=== PATIENT | female | born 1965 | race American Indian/Alaskan Native ===

== ENCOUNTER 2017-11-27 11:46 | Emergency (ER) | payer OTHER ==
[2017-11-27 11:47] VITALS: BMI 68.1
[2017-11-27 12:20] VITALS: BP 167/90; PULSE 83; RESP 18; TEMP 98.5; O2SAT 98
[2017-11-27] MEDS ORDERED: Sodium Chloride 0.9% 500 ML IV STA (12:22)
--- NOTE | 2017-11-27 12:36 | ED PDOC ---
Arrival/HPI - General Chief Complaint: Female Genitourinary Time Seen by Provider: 11/27/17 12:21 - History of Present Illness Narrative History of Present Illness (Text): 11/27/17 12:31 Patient is a 52 y/o F presenting with 2 week history of increasing frequency and suprapubic pain. She reports that she thought the symptoms were from a uti so she increased her fluids and drank cranberry juice with no improvement of symptoms. Reports b/l suprapubic pain and b/l flank pain. Denies dysuria. Denies fever, cough, uri symptoms, chest pain, shortness of breath, nausea/ vomiting, diarrhea, constipation, or vaginal bleeding. 11/27/17 12:53 Past Medical History - Psychiatric Hx Substance Use: No - Surgical History Hx Section: Yes Family/Social History Family/Social History: No Known Family HX Smoking Status: Never Smoked Hx Alcohol Use: No Hx Substance Use: No Allergies/Home Meds Allergies/Adverse Reactions: Allergies No Known Allergies Allergy (Verified 11/27/17 12:12) Home Medications: Home Meds Medication Instructions Recorded Confirmed No Known Home Med 11/27/17 11/27/17 Review of Systems - Review of Systems Constitutional: absent: Fatigue, Weight Change, Fevers Respiratory: absent: SOB, Cough, Sputum, Wheezing Cardiovascular: absent: Chest Pain, Palpitations, Edema, Calf Pain Gastrointestinal: Abdominal Pain. absent: Constipation, Diarrhea, Nausea, Vomiting Genitourinary Female: Frequency, Urine Output Changes. absent: Dysuria, Hematuria, Vaginal Bleeding, Vaginal Discharge Neurological: absent: Headache Psychiatric: absent: Anxiety, Depression Physical Exam Vital Signs Temp Pulse Resp BP Pulse Ox 11/27/17 12:13 98.5 F 83 18 167/90 H 98 Temperature: Afebrile Blood Pressure: Hypertensive Pulse: Regular Respiratory Rate: Normal Appearance: Positive for: Well-Appearing, Non-Toxic, Comfortable Pain Distress: None Mental Status: Positive for: Alert and Oriented X 3 - Systems Exam Head: Present: Atraumatic, Normocephalic Pupils: Present: PERRL Extroacular Muscles: Present: EOMI Conjunctiva: Present: Normal Mouth: Present: Moist Mucous Membranes Neck: Present: Normal Range of Motion Respiratory/Chest: Present: Clear to Auscultation, Good Air Exchange. No: Respiratory Distress, Accessory Muscle Use Cardiovascular: Present: Regular Rate and Rhythm, Normal S1, S2. No: Murmurs Abdomen: No: Tenderness, Distention, Rebound, Guarding Upper Extremity: Present: Normal Inspection Lower Extremity: Present: Normal Inspection Medical Decision Making ED Course and Treatment: 11/27/17 13:48 UA negative for infection. +hematuria. Denies dysuria. Labs show microcytic anemia to 8.6. Chem WNL FINDINGS: LOWER THORAX: Unremarkable. LIVER: Unremarkable. No gross lesion or ductal dilatation. GALLBLADDER AND BILE DUCTS: Unremarkable. PANCREAS: Unremarkable. No gross lesion or ductal dilatation. SPLEEN: Unremarkable. ADRENALS: Unremarkable. No mass. KIDNEYS AND URETERS: Unremarkable. No hydronephrosis. No solid mass. VASCULATURE: Unremarkable. No aortic aneurysm. BOWEL: Unremarkable. No obstruction. No gross mural thickening. APPENDIX: Unremarkable. Normal appendix. PERITONEUM: Unremarkable. No free fluid. No free air. LYMPH NODES: Unremarkable. No enlarged lymph nodes. BLADDER: Unremarkable. REPRODUCTIVE: There is a large fibroid uterus. There is a pedunculated fibroid extending to the right measuring 4.2 x 5.2 cm. BONES: No acute fracture. OTHER FINDINGS: None. IMPRESSION: Fibroid uterus. No acute intra-abdominal findings 11/27/17 13:48 11/27/17 13:53 Patient reports hx of iron and b12 deficiency anemia. Instructed to increase iron rich foods and follow-up with PMD. Aware of hematuria (reports menses due tomorrow) and instructed to follow-up with urologist. Made aware of finding of fibroid and instructed that symptoms of abdominal pain and frequency urination are probably from pressure of fibroid on bladder. Instructed to follow-up with OB for further evaluation. 11/27/17 13:58 - Lab Interpretations Lab Results: 11/27/17 13:20 11/27/17 13:20 Lab Results 11/27/17 13:20: Sodium 139, Potassium 3.6, Chloride 105, Carbon Dioxide 23, Anion Gap 15, BUN 8, Creatinine 0.8, Est GFR ( Amer) > 60, Est GFR (Non- Af Amer) > 60, Random Glucose 98, Calcium 9.2, Total Bilirubin 0.5, AST 25, ALT 27, Alkaline Phosphatase 58, Total Protein 7.7, Albumin 4.2, Globulin 3.5, Albumin/Globulin Ratio 1.2 11/27/17 13:20: WBC 5.5, RBC 5.20, Hgb 8.6 L, Hct 28.2 L, MCV 54.2 L, MCH 16.5 L , MCHC 30.5 L, RDW 19.5 H, Plt Count 373, Gran % 63.3, Lymph % (Auto) 25.2, Ocean % (Auto) 8.6 H, Eos % (Auto) 2.4, Baso % (Auto) 0.5, Gran # 3.46, Lymph # ( Auto) 1.4, Ocean # (Auto) 0.5, Eos # (Auto) 0.1, Baso # (Auto) 0.03 11/27/17 12:32: Urine Color Yellow, Urine Appearance Clear, Urine pH 6.0, Ur Specific [place] 1.010, Urine Protein Negative, Urine Glucose (UA) Negative, Urine Ketones Negative, Urine Blood Trace-intact H, Urine Nitrate Negative, Urine Bilirubin Negative, Urine Urobilinogen 0.2, Ur Leukocyte Esterase Negative , Urine RBC 1 - 3, Urine WBC 2 - 5, Ur Epithelial Cells 10 - 12, Urine Bacteria Few - RAD Interpretation Radiology Orders: 11/27/17 12:52 ABD & PELVIS W/O PO OR IV CONT [CT] Stat - Medication Orders Current Medication Orders: Discontinued Medications Sodium Chloride (Sodium Chloride 0.9%) 500 mls @ 999 mls/hr IV .Q31M STA Stop: 11/27/17 12:52 Last Admin: 11/27/17 13:08 Dose: 999 mls/hr eMAR Start Stop Document 11/27/17 13:08 FRANCO (Rec: 11/27/17 13:08 [email or web address]) Intravenous Solution Start Date 11/27/17 Start Time 13:08 Ketorolac Tromethamine (Toradol) 30 mg IVP STAT STA Stop: 11/27/17 12:23 Last Admin: 11/27/17 13:07 Dose: 30 mg MAR Pain Assessment Document 11/27/17 13:07 [facility] (Rec: 11/27/17 13:07 [email or web address] Pain Reassessment Is this a pain reassessment? Yes Presence of Pain Presence of Pain Yes Pain Scale Used Pain Scale Used Numeric Location Left, Right or Bilateral Bilateral Upper or Lower Lower Pain Location Body Site Back Description Description Pressure Intensity of Pain at present 4 IVP Administration Document 11/27/17 13:07 FRANCO (Rec: 11/27/17 13:07 [email or web address] Charges for Administration # of IVP Administrations 1 Phenazopyridine HCl (Pyridium) 100 mg PO STAT STA Stop: 11/27/17 12:22 Last Admin: 11/27/17 13:07 Dose: 100 mg Disposition/Present on Arrival - Present on Arrival Any Indicators Present on Arrival: No History of DVT/PE: No History of Uncontrolled Diabetes: No Urinary Catheter: No History of Decub. Ulcer: No History Surgical Site Infection Following: None - Disposition Have Diagnosis and Disposition been Completed?: Yes Diagnosis: Hematuria, Microcytic anemia, Fibroid uterus Disposition: HOME/ ROUTINE Disposition Time: 13:56 Patient Plan: Discharge Condition: GOOD Discharge Instructions (ExitCare): Uterine Fibroids (ED), Acute Hematuria (ED) , Anemia (ED) Additional Instructions: Follow-up with PMD or [facility] within 2 days. Return to ED if condition worsens. Follow-up with tea bag packer for fibroids. Follow-up with urology for further evaluation of hematuria. Return to ED if condition worsens. Referrals: [employer] Janet Redaphney, [Primary Care Provider] - Follow up with primary Autumn Arshad MD [Staff Provider] - Follow up with primary Edenilson Saavedra MD [Staff Provider] - Follow up with primary [facility] [Outside] - Follow up with primary Oscar Conrad MD [Staff Provider] - Follow up with primary Forms: [employer] (B[place]raini)
[2017-11-27 12:44] LABS: URINE BILIRUBIN NEGATIVE (NEGATIVE); URINE BLOOD TRACE-INTACT (NEGATIVE); URINE GLUCOSE (UA) NEGATIVE (NEGATIVE); URINE LEUKOCYTE ESTERASE NEGATIVE Leu/uL (NEGATIVE); URINE NITRATE NEGATIVE (NEGATIVE); URINE PROTEIN NEGATIVE mg/dL (<30 mg/dL); URINE UROBILINOGEN 0.2 E.U./dL (<1 E.U./dL)
[2017-11-27 12:51] LABS: URINE APPEARANCE CLEAR (CLEAR); URINE COLOR YELLOW (YELLOW)
[2017-11-27 13:20] LABS: URINE BACTERIA FEW (NEG)
[2017-11-27 13:29] LABS: BASO # 0.03 K/mm3 (0.0-2.0); BASO % 0.5 % (0.0-3.0); EOS # 0.1 (0.0-0.7); EOS % 2.4 % (1.5-5.0); GRAN # 3.46 (1.4-6.5); GRAN % 63.3 % (50.0-68.0); HEMOGLOBIN 8.6 g/dL (12.0-16.0); LYMPH # 1.4 (1.2-3.4); LYMPH % 25.2 % (22.0-35.0); MEAN CELL VOLUME 54.2 fl (80.0-105.0); MEAN CORPUSCULAR HEMOGLOBIN 16.5 pg (25.0-35.0); MEAN CORPUSCULAR HGB CONC 30.5 g/dl (31.0-37.0); MONO # 0.5 (0.1-0.6); MONO % 8.6 % (1.0-6.0); PLATELET COUNT 373 10^3/uL (120.0-450.0); RED CELL DISTRIBUTION WIDTH 19.5 % (11.5-14.5); WHITE BLOOD COUNT 5.5 10^3/ul (4.5-11.0)
[2017-11-27 13:42] LABS: ALB/GLOB RATIO 1.2 (1.1-1.8); ALBUMIN 4.2 g/dL (3.0-4.8); ALT/SGPT 27 U/L (7-56); AST/SGOT 25 U/L (14-36); BLOOD UREA NITROGEN 8 mg/dL (7-21); CALCIUM 9.2 mg/dL (8.4-10.5); GFR AFRICAN-AMERICAN > 60; GFR NON-AFRICAN AMERICAN > 60
--- NOTE | 2017-11-27 13:43 | CT ---
PROCEDURE: CT Abdomen and Pelvis without intravenous contrast HISTORY: hematuria, suprapubic pain COMPARISON: None. TECHNIQUE: Without. Contrast Dose: Radiation dose: Total exam DLP = 381 mGy-cm. This CT exam was performed using one or more of the following dose reduction techniques: Automated exposure control, adjustment of the mA and/or kV according to patient size, and/or use of iterative reconstruction technique. FINDINGS: LOWER THORAX: Unremarkable. LIVER: Unremarkable. No gross lesion or ductal dilatation. GALLBLADDER AND BILE DUCTS: Unremarkable. PANCREAS: Unremarkable. No gross lesion or ductal dilatation. SPLEEN: Unremarkable. ADRENALS: Unremarkable. No mass. KIDNEYS AND URETERS: Unremarkable. No hydronephrosis. No solid mass. VASCULATURE: Unremarkable. No aortic aneurysm. BOWEL: Unremarkable. No obstruction. No gross mural thickening. APPENDIX: Unremarkable. Normal appendix. PERITONEUM: Unremarkable. No free fluid. No free air. LYMPH NODES: Unremarkable. No enlarged lymph nodes. BLADDER: Unremarkable. REPRODUCTIVE: There is a large fibroid uterus. There is a pedunculated fibroid extending to the right measuring 4.2 x 5.2 cm. BONES: No acute fracture. OTHER FINDINGS: None. IMPRESSION: Fibroid uterus. No acute intra-abdominal findings
== END 2017-11-27 14:05 | disposition home or self-care (01) ==
LOC: ED 11:46
DX: D50.9 Iron deficiency anemia, unspecified (principal); R31.9 Hematuria, unspecified; D25.9 Leiomyoma of uterus, unspecified
CPT/HCPCS: 74176; 80053; 81001; 85025; 87086; 96374; 99284; J1885; J7040

== ENCOUNTER 2018-05-27 12:34 | Emergency (ER) | payer OTHER ==
[2018-05-27 12:44] VITALS: BMI 26.5
[2018-05-27 12:45] VITALS: TEMP 98.3; O2SAT 100
--- NOTE | 2018-05-27 12:51 | ED PDOC ---
Arrival/HPI - General Chief Complaint: Shortness Of Breath Time Seen by Provider: 05/27/18 12:41 Historian: Patient - History of Present Illness Time/Duration: Other (Several weeks) Symptom Onset: Gradual Symptom Course: Worsening Severity Level: Moderate Associated Symptoms (Text): 05/27/18 12:49 Patient complains of a several week history of intermittent dyspnea on exertion. There is no dyspnea at rest. No chest pain. No back pain. No cough congestion or URI. No fever or chills. There's been some intermittent nausea, but none now. No abdominal pain vomiting or diarrhea. No genitourinary symptoms. No diaphoresis. No dizziness or lightheadedness. Patient reports episodes of anxiety. She is a never smoker and never drinker. No drugs. control is tubal ligation. 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 She reports that she was doing some light cleaning at home this morning became dyspneic and became concerned so came to the emergency department. Past Medical History - Psychiatric Hx Substance Use: No - Surgical History Hx Section: Yes Family/Social History - Physician Review Nursing Documentation Reviewed: Yes Family/Social History: Unknown Family HX Smoking Status: Never Smoked Hx Alcohol Use: No Hx Substance Use: No Allergies/Home Meds Allergies/Adverse Reactions: Allergies No Known Allergies Allergy (Verified 05/27/18 12:49) Home Medications: Home Meds Medication Instructions Recorded Confirmed No Known Home Med 11/27/17 05/27/18 Review of Systems - Physician Review All systems were reviewed & negative as marked: Yes - Review of Systems Constitutional: absent: Fatigue, Fevers Respiratory: SOB. absent: Cough, Sputum, Wheezing Cardiovascular: absent: Chest Pain, Palpitations, Syncope Gastrointestinal: Nausea. absent: Abdominal Pain, Constipation, Diarrhea, Vomiting, Anorexia Genitourinary Female: absent: Dysuria, Frequency, Hematuria Neurological: absent: Headache, Dizziness, Focal Weakness Physical Exam Vital Signs Temp Pulse Resp BP Pulse Ox 05/27/18 14:01 19 05/27/18 12:44 98.3 F 98 H 19 142/93 H 100 Temperature: Afebrile Blood Pressure: Hypertensive Pulse: Regular Respiratory Rate: Normal Appearance: Positive for: Well-Appearing, Non-Toxic, Comfortable, Other (Anxious ) Pain Distress: None Mental Status: Positive for: Alert and Oriented X 3 - Systems Exam Head: Present: Atraumatic, Normocephalic Pupils: Present: PERRL Extroacular Muscles: Present: EOMI Conjunctiva: Present: Normal Ears: Present: NORMAL TM, Normal Canal. No: Erythema, TM Bulging Mouth: Present: Moist Mucous Membranes Pharnyx: No: ERYTHEMA, EXUDATE, TONSILS ENLARGED Neck: Present: Normal Range of Motion Respiratory/Chest: Present: Clear to Auscultation, Good Air Exchange. No: Respiratory Distress, Accessory Muscle Use Cardiovascular: Present: Regular Rate and Rhythm, Normal S1, S2, Tachycardic. No: Murmurs Abdomen: No: Tenderness, Distention, Peritoneal Signs, Rebound, Guarding Back: Present: Normal Inspection. No: CVA Tenderness Upper Extremity: Present: Normal Inspection. No: Cyanosis, Edema Lower Extremity: Present: Normal Inspection. No: Edema Neurological: Present: GCS=15, CN II-XII Intact, Speech Normal, Motor Func Grossly Intact Skin: Present: Warm, Dry, Normal Color. No: Rashes Psychiatric: Present: Alert, Oriented x 3, Normal Insight, Normal Concentration Medical Decision Making ED Course and Treatment: 05/27/18 13:08 EKG shows normal sinus rhythm with a sinus arrhythmia rate approximately [address] or T-wave changes 05/27/18 13:48 Patient reports a known anemia. Hemoglobin in November was 8.6. Rectal exam with female scribe as life insurance underwriter is brown and guaiac negative. - Lab Interpretations Lab Results: 05/27/18 13:00 05/27/18 13:00 Lab Results 05/27/18 13:00: Sodium 141, Potassium 3.8, Chloride 105, Carbon Dioxide 23, Anion Gap 16, BUN 10, Creatinine 0.9, Est GFR ( Amer) > 60, Est GFR (Non- Af Amer) > 60, Random Glucose 143 H, Calcium 8.7, Magnesium 2.0, Total Bilirubin 0.4, AST 28, ALT 15, Alkaline Phosphatase 64, Lactate Dehydrogenase 382, Total Creatine Kinase 105, Troponin I < 0.01, NT-Pro-B Natriuret Pep 35.4, Total Protein 7.6, Albumin 4.2, Globulin 3.3, Albumin/Globulin Ratio 1.3 05/27/18 13:00: D-Dimer, Quantitative < 200 05/27/18 13:00: WBC 6.0, RBC 5.24, Hgb 8.4 L, Hct 27.4 L, MCV 52.3 L, MCH 16.0 L , MCHC 30.7 L, RDW 20.7 H, Plt Count 409, Gran % 71.6 H, Lymph % (Auto) 19.1 L, [place] % (Auto) 7.8 H, Eos % (Auto) 1.0 L, Baso % (Auto) 0.5, Gran # 4.31, Lymph # (Auto) 1.2, [place] # (Auto) 0.5, Eos # (Auto) 0.1, Baso # (Auto) 0.03 - RAD Interpretation Radiology Orders: 05/27/18 12:47 CHEST PORTABLE [RAD] Stat Chest one view shows no infiltrate effusion or cardiomegaly [employer] Operator: ED Physician Disposition/Present on Arrival - Present on Arrival Any Indicators Present on Arrival: No History of DVT/PE: No History of Uncontrolled Diabetes: No Urinary Catheter: No History of Decub. Ulcer: No History Surgical Site Infection Following: None - Disposition Have Diagnosis and Disposition been Completed?: Yes Diagnosis: Dyspnea, Anemia, Hyperglycemia, Hypertension Disposition: HOME/ ROUTINE Disposition Time: 14:35 Patient Plan: Discharge Condition: GOOD Discharge Instructions (ExitCare): Shortness of Breath (Dyspnea) (DC), Normocytic Normochromic Anemia Additional Instructions: Must follow-up with PMD to have blood pressure checked blood sugar checked and anemia evaluated. Follow up in ER as needed. Referrals: PCP,NO [Primary Care Provider] - Follow up with primary Forms: [employer] ([place] Irish)
--- NOTE | 2018-05-27 13:20 | RAD ---
Date of service: 05/27/2018 HISTORY: sob COMPARISON: No prior. FINDINGS: LUNGS: No active pulmonary disease. PLEURA: No significant pleural effusion identified, no pneumothorax apparent. CARDIOVASCULAR: Normal. OSSEOUS STRUCTURES: No significant abnormalities. VISUALIZED UPPER ABDOMEN: Normal. OTHER FINDINGS: None. IMPRESSION: No active disease.
[2018-05-27 13:27] LABS: BASO # 0.03 K/mm3 (0.0-2.0); BASO % 0.5 % (0.0-3.0); EOS # 0.1 (0.0-0.7); GRAN # 4.31 (1.4-6.5); GRAN % 71.6 % (50.0-68.0); HEMOGLOBIN 8.4 g/dL (12.0-16.0); LYMPH # 1.2 (1.2-3.4); LYMPH % 19.1 % (22.0-35.0); MEAN CELL VOLUME 52.3 fl (80.0-105.0); MEAN CORPUSCULAR HGB CONC 30.7 g/dl (31.0-37.0); MONO # 0.5 (0.1-0.6); MONO % 7.8 % (1.0-6.0); PLATELET COUNT 409 10^3/uL (120.0-450.0); RBC 5.24 10^6/uL (3.5-6.1); RED CELL DISTRIBUTION WIDTH 20.7 % (11.5-14.5)
[2018-05-27 13:29] LABS: ALB/GLOB RATIO 1.3 (1.1-1.8); ALBUMIN 4.2 g/dL (3.0-4.8); ALT/SGPT 15 U/L (7-56); AST/SGOT 28 U/L (14-36); BLOOD UREA NITROGEN 10 mg/dL (7-21); CALCIUM 8.7 mg/dL (8.4-10.5); GFR AFRICAN-AMERICAN > 60; GFR NON-AFRICAN AMERICAN > 60
[2018-05-27 13:40] LABS: B-TYPE NATRIURETIC PEPTIDE 35.4 pg/mL (0-450); TROPONIN I < 0.01 ng/mL
[2018-05-27 14:50] VITALS: BP 137/90; PULSE 90; RESP 18
--- NOTE | 2018-05-27 15:35 | CARD ---
APPROVED REPORT Date of service: 05/27/2018 EKG Measurement Heart [id number] <Conclusion> Normal sinus rhythm with sinus arrhythmia Normal ECG
== END 2018-05-27 15:11 | disposition home or self-care (01) ==
LOC: ED 12:34
DX: I10 Essential (primary) hypertension (principal); D64.9 Anemia, unspecified; R06.00 Dyspnea, unspecified; R73.9 Hyperglycemia, unspecified